=== PATIENT | female | born 1960 | race Caucasian/White ===

== ENCOUNTER 2017-05-11 11:36 | Day surgery (SDC) | payer OTHER ==
[~2017-05-11] VITALS: Ht 167.6 cm; Wt 85.0 kg
[2017-05-11 12:09] VITALS: Ht 167.6 cm; Wt 85.0 kg
[2017-05-11 13:04] VITALS: BP 146/93; PULSE 95; RESP 18
--- NOTE | 2017-05-11 13:39 | OPPN ---
Date/Time of Note Date/Time of Note DATE: 05/11/17 TIME: 13:37 Operative Report Preoperative Diagnosis Abdominal pain Screening Postoperative Diagnosis Hiatal hernia Reflux esophagitis with ulcers in the esophagus Gastritis Diverticulosis of the colon Internal hemorrhoids No colon neoplasm was identified Operation/Procedure Performed Esophagogastroduodenoscopy and biopsy Colonoscopy Surgeon see signature line assistant counsel None Anesthesia: moderate sedation Estimated blood loss: none Transfusion Required none Specimen Gastric mucosal biopsy Grafts/Implants none Complications none RICKEY HAIR MD May 11, 2017 13:39
[2017-05-11] MEDS ORDERED: FENTAnyl 50 MCG/ML VIAL ONE (14:00)
[2017-05-11] MEDS ORDERED: MIDAZOLAM 1 MG/ML 2 ML INJ ONE ×3 (14:00→15:16)
[2017-05-11 14:05] VITALS: BP 156/81; PULSE 88; RESP 16
--- NOTE | 2017-05-12 03:01 | GILP ---
DATE OF PROCEDURE: 05/11/2017 NAME OF PROCEDURES: 1. Esophagogastroduodenoscopy and biopsy. 2. Colonoscopy. SURGEON: Dr. Rickey Hair M.D. PREOPERATIVE DIAGNOSES: 1. Abdominal pain. 2. Screening colonoscopy. POSTOPERATIVE DIAGNOSES: 1. Hiatal hernia with reflux esophagitis and ulcers in the esophagus. 2. Gastritis with erosions. 3. Gastric mucosal biopsies were taken for Helicobacter pylori test. 4. Colonoscopy all the way to the cecum. 5. Diverticulosis of the colon. 6. Internal hemorrhoids. 7. No colon neoplasm was identified. INDICATION FOR THE PROCEDURE: Ms. Christine Garcia is a 56-year-old female patient who had upper abd ominal pain, not responding to therapy. She also needed screening colonoscopy. The procedures and possible complications are well explained to the patient. The patient understood and consented to the procedure. DESCRIPTION OF PROCEDURE: Under the influence of fentanyl and Versed, the gastroscope was carefully introduced into the esophagus. Under direct vision, it was advanced to the stomach and through the pylorus into the duodenal bulb and descending duodenum. FINDINGS: ESOPHAGUS: The patient had a hiatal hernia with reflux esophagitis and ulcers in the esophagus. STOMACH: She had gastritis with erosions. Gastric mucosal biopsies were taken for H. pylori test. DUODENUM: Normal. The colonoscope was carefully introduced in the rectum. Under direct vision, it was advanced all th e way to the cecum. FINDINGS: The patient had diverticulosis of the colon. She also had internal hemorrhoids. No colo n neoplasm was identified. The patient tolerated the procedure very well and there was no complication from the procedure. At the end of the procedure, she was awake with stable vital signs; and she was discharged home to the care of her family. IMPRESSION: Please see postoperative diagnosis. PLAN: 1. Omeprazole 40 mg p.o. q.a.m. 2. Zantac 300 mg p.o. at bedtime. 3. Await H. pylori test report. Dictated By: RICKEY ROWLEY/ANTHONY Conf#: [id number] DID#: [id number] CC: RICKEY HAIR MD;*EndCC*
== END 2017-05-11 14:44 | disposition home or self-care (01) ==
LOC: GIL 11:36
PROVIDERS: ATTEND Internal Medicine Gastroenterology
DX: Z12.11 Encounter for screening for malignant neoplasm of colon (principal); K44.9 Diaphragmatic hernia without obstruction or gangrene; K21.0 Gastro-esophageal reflux disease with esophagitis; K22.10 Ulcer of esophagus without bleeding; K29.70 Gastritis, unspecified, without bleeding; K57.90 Diverticulosis of intestine, part unspecified, without perforation or abscess without bleeding; K64.8 Other hemorrhoids
CPT/HCPCS: 43239; 45378; 87081; J2250; J3010; Z7610